=== PATIENT | male | born 1950 | race Caucasian/White ===

== ENCOUNTER 2016-05-05 07:47 | Day surgery (SDC) | payer BC ==
[~2016-05-05] VITALS: Ht 177.8 cm; Wt 77.7 kg
[2016-05-05] VITALS (9 sets, daily range): BP systolic 102–128; BP diastolic 51–81
[~2016-05-05 07:47] MED LIST: LACTATED RINGERS 1,000 ML IV SCH; SODIUM CHLORIDE FLUSH 3 ML SYR IV PRN
[2016-05-05] MEDS ORDERED: MIDAZOLAM 2 MG/2 ML (VERSED) VIAL ONE (08:06)
[2016-05-05] MEDS ORDERED: ALFENTANIL 500 MCG/ML (ALFENTA) 5 ML AMP IV ONE (08:06)
[2016-05-05] MEDS ORDERED: PROPOFOL 20 ML IV ONE (08:07)
[2016-05-05] MEDS ORDERED: FLUMAZENIL (ROMAZICON) 0.1 MG/ML 5 ML VIAL ONE (09:42)
== END 2016-05-05 12:47 | disposition home or self-care (01) ==
LOC: ASC 07:47
PROVIDERS: ATTEND Surgery
DX: Z12.11 Encounter for screening for malignant neoplasm of colon (principal); Z80.0 Family history of malignant neoplasm of digestive organs; J45.909 Unspecified asthma, uncomplicated; G47.33 Obstructive sleep apnea (adult) (pediatric); K21.9 Gastro-esophageal reflux disease without esophagitis
CPT/HCPCS: 45378; J2250; J3490; J7120